=== PATIENT | male | born 1945 | race Caucasian/White ===

== ENCOUNTER 2020-03-07 15:52 | Inpatient (IN) | payer MEDICARE, BC ==
[~2020-03-07] VITALS: Ht 182.9 cm; Wt 113.0 kg
[~2020-03-07 15:52] MED LIST: DULO-31 PO; ERGO500014 PO; MIN5C PO; MULT-785 PO; POTA10TA19 PO; SIN10C PO
[2020-03-07] MEDS ORDERED: ondansetron/PF 4mg/2ml inj IV ONE (16:10)
[2020-03-07] MEDS ORDERED: morphine 4 MG/ML inj SYRINge IV ONE (16:10)
[2020-03-07] MEDS ORDERED: LORazepam 2 mg/ml vial IV ONE (16:10)
[2020-03-07 17:06] LABS: BASOPHILS # (AUTO) 0.1 X10'3 (0-0.2); BASOPHILS % (AUTO) 0.7 % (0-1); EOSINOPHILS # (AUTO) 0.3 X10'3 (0-0.9); EOSINOPHILS % (AUTO) 3.1 % (0-6); HEMATOCRIT 45.2 % (42.0-52.0); HEMOGLOBIN 15.1 g/dl (14.0-17.9); LYMPHOCYTES # (AUTO) 1.7 X10'3 (1.1-4.8); LYMPHOCYTES % (AUTO) 19.1 % (21-51); MEAN CORPUSCULAR HEMOGLOBIN 31.2 PG (27.0-31.0); MEAN CORPUSCULAR HGB CONC 33.3 g/dL (33.0-36.5); MEAN CORPUSCULAR VOLUME 93.5 FL (78-98); MONOCYTES # (AUTO) 0.6 X10'3 (0-0.9); MONOCYTES % (AUTO) 6.9 % (2-12); NEUTROPHILS # (AUTO) 6.2 X10'3 (1.8-7.7); NEUTROPHILS % (AUTO) 70.2 % (42-75); PLATELET COUNT 272 X10'3 (140-440); RED BLOOD COUNT 4.83 X10'6 (4.70-6.10); RED CELL DISTRIBUTION WIDTH 13.6 % (11.5-14.5); WHITE BLOOD COUNT 8.8 X10'3 (4.5-11.0)
[2020-03-07 17:20] LABS: ALANINE AMINOTRANSFERASE 50 U/L (12-78); ALBUMIN 3.6 G/DL (3.4-5.0); ALKALINE PHOSPHATASE 90 IU/L (46-116); ANION GAP 7 (8-16); ASPARTATE AMINO TRANSFERASE 27 U/L (10-37); BILIRUBIN,TOTAL 0.4 MG/DL (0.1-1.0); BLOOD UREA NITROGEN 21 MG/DL (7-18); BUN/CREATININE RATIO 15.8 (5.4-32.0); CALCIUM 8.7 MG/DL (8.5-10.1); CHLORIDE 106 MMOL/L (99-107); CREATININE 1.33 MG/DL (0.60-1.10); GLUCOSE 103 MG/DL (70-104); POTASSIUM 3.6 MMOL/L (3.5-5.1); SODIUM 140 MMOL/L (135-145); TOTAL CARBON DIOXIDE 26.6 MMOL/L (24-32); TOTAL PROTEIN 7.2 G/DL (6.4-8.2); eGFR 53 ML/MIN
[2020-03-07] MEDS ORDERED: ondansetron/PF 4mg/2ml inj IV PRN (17:50)
[2020-03-07] MEDS ORDERED: morphine 2 MG/ML inj. syringe IV PRN ×2 (17:50)
[2020-03-07] MEDS ORDERED: magnesium hydroxide 30ml (MOM) UD suspension PO PRN (17:50)
[2020-03-07] MEDS ORDERED: acetaminophen 325mg tablet PO PRN (17:50)
[2020-03-07] MEDS: dextrose 5%-1/2 normal saline 1,000 ML IV SCH (17:50)
--- NOTE | 2020-03-07 18:24 | NUR ---
Pt resting in bed, states relief from pain and anxiety
[2020-03-07] MEDS: docusate sod 100mg capsule PO SCH (20:00)
[2020-03-07 20:03] LABS: CLARITY,URINE CLEAR (Clear); COLOR,URINE YELLOW (Yellow); GLUCOSE, URINE NEGATIVE (Neg); KETONES,URINE NEGATIVE (Neg); LEUKOCYTE ESTERASE ,URINE NEGATIVE (Neg); NITRITES, URINE NEGATIVE (Neg); OCCULT BLOOD,URINE SMALL (Neg); PH,URINE 5.5 (4.8-8.0); PROTEIN,URINE NEGATIVE (Neg); UROBILINOGEN,URINE 0.2 E.U/dL (0.2-1.0)
[2020-03-07 20:09] LABS: BACTERIA,URINE NONE SEEN /HPF (Neg); SQUAMOUS EPITHELIAL CELL,UR FEW /LPF (FEW); UA COLLECTION TYPE STRAIGHT CATH; WBC,URINE NONE SEEN /HPF (0-4)
[2020-03-07 21:00] VITALS: BP 99/54
[2020-03-07] MEDS: HYDROcodone/acetaminophen 5mg/325mg tablet PO PRN (21:29)
[2020-03-07] MEDS: mag hydrox/Alum hydrox/simeth 30ml oral suspension PO PRN (21:29)
[2020-03-08] VITALS (19 sets, daily range): BP systolic 102–156; BP diastolic 38–77
[2020-03-08] MEDS ORDERED: OMEP20TA5 PO (04:23)
--- NOTE | 2020-03-08 06:26 | NUR ---
Problems reprioritized. Patient report given, questions answered & plan of care reviewed with ALECIA Wiley.
--- NOTE | 2020-03-08 06:40 | NUR ---
Patient in room ORTHO 4013. I have received report from Venecia ALSTON and had the opportunity to ask questions and assume patient care.
[2020-03-08 06:46] LABS: BASOPHILS % (AUTO) 0.2 % (0-1); EOSINOPHILS # (AUTO) 0.2 X10'3 (0-0.9); EOSINOPHILS % (AUTO) 1.7 % (0-6); HEMATOCRIT 42.3 % (42.0-52.0); HEMOGLOBIN 13.9 g/dl (14.0-17.9); LYMPHOCYTES # (AUTO) 1.1 X10'3 (1.1-4.8); LYMPHOCYTES % (AUTO) 11.2 % (21-51); MEAN CORPUSCULAR HEMOGLOBIN 30.8 PG (27.0-31.0); MEAN CORPUSCULAR VOLUME 93.5 FL (78-98); NEUTROPHILS # (AUTO) 7.3 X10'3 (1.8-7.7); NEUTROPHILS % (AUTO) 76.9 % (42-75); PLATELET COUNT 243 X10'3 (140-440); RED BLOOD COUNT 4.52 X10'6 (4.70-6.10); RED CELL DISTRIBUTION WIDTH 13.8 % (11.5-14.5); WHITE BLOOD COUNT 9.5 X10'3 (4.5-11.0)
[2020-03-08 07:08] LABS: ALBUMIN 3.1 G/DL (3.4-5.0); ANION GAP 6 (8-16); BLOOD UREA NITROGEN 19 MG/DL (7-18); BUN/CREATININE RATIO 16.4 (5.4-32.0); CHLORIDE 109 MMOL/L (99-107); CREATININE 1.16 MG/DL (0.60-1.10); GLUCOSE 116 MG/DL (70-104); POTASSIUM 3.3 MMOL/L (3.5-5.1); SODIUM 143 MMOL/L (135-145); TOTAL CARBON DIOXIDE 27.6 MMOL/L (24-32); eGFR 62 ML/MIN
[2020-03-08] MEDS ORDERED: magnesium 4gm in 100ml NS 100 ML IV PRN (07:20)
[2020-03-08] MEDS ORDERED: magnesium Cl slow-release 64mg tablet PO PRN (07:20)
[2020-03-08] MEDS ORDERED: potassium CL 10mEq/100ml bag 100 ML IV PRN (07:20)
[2020-03-08] MEDS ORDERED: potassium Cl 20 mEq SR tablet PO PRN (07:20)
[2020-03-08] MEDS: dextrose 5%-1/2 normal saline 1,000 ML IV SCH ×2 (07:43→13:50)
[2020-03-08] MEDS: docusate sod 100mg capsule PO SCH ×2 (08:00→20:00)
[2020-03-08] MEDS: K and/or MAG REPLACEMENT MC SCH ×2 (08:00→20:00)
[2020-03-08] MEDS ORDERED: ringers solution, lacted 1,000 ML IV ONE ×2 (08:10)
[2020-03-08] MEDS ORDERED: LEVO100T PO (09:03)
[2020-03-08] MEDS: duloxetine 30mg CAPSULE.DR PO SCH (09:47)
[2020-03-08] MEDS ORDERED: CHOL100024 PO (09:56)
[2020-03-08] MEDS ORDERED: vancomycin 1,000mg inj ONE (10:52)
--- NOTE | 2020-03-08 11:03 | NUR ---
Patient being transferred to OR, called report to Jori ALSTON in recovery.
[2020-03-08] MEDS ORDERED: fentaNYL/PF 50MCG/1 ML 2ML syringe ONE ×3 (11:29→12:06)
[2020-03-08] MEDS ORDERED: midazolam 2 mg/2 ml injection ONE (11:30)
[2020-03-08] MEDS ORDERED: sevoflurane 250ml liquid IH ONE (11:31)
[2020-03-08] MEDS ORDERED: propofol inj 20 ML IV ONE (11:31)
[2020-03-08] MEDS ORDERED: LIDOcaine 2% (20mg/ml) 5ml vial ONE (11:31)
[2020-03-08] MEDS ORDERED: dexamethasone sod phosphate 4mg/ml inj. ONE (11:31)
[2020-03-08] MEDS ORDERED: ondansetron/PF 4mg/2ml inj ONE (11:31)
[2020-03-08] MEDS ORDERED: TRANEXAMIC ACID 1 GM IN NACL,ISO-OS 100 ML IV ONE (12:05)
[2020-03-08] MEDS ORDERED: fentaNYL/PF 50MCG/1 ML 2ML syringe IV PRN ×2 (12:20)
[2020-03-08] MEDS ORDERED: morphine 4 MG/ML inj SYRINge IV PRN (12:20)
[2020-03-08] MEDS ORDERED: morphine 2 MG/ML inj. syringe IV PRN (12:20)
[2020-03-08] MEDS ORDERED: ondansetron/PF 4mg/2ml inj IV PRN (12:20)
[2020-03-08] MEDS ORDERED: hydrALAZINE 20mg/ml inj. IV PRN (12:20)
[2020-03-08] MEDS ORDERED: labetalol 20mg/4ml (5mg/ml) syringe IV PRN (12:20)
[2020-03-08] MEDS ORDERED: ringers solution, lacted 1,000 ML IV SCH (12:20)
--- NOTE | 2020-03-08 12:55 | NUR ---
Received from OR via BED , accompanied by Anesthesiologist DR JORGENSEN and report given by Anesthesiolgist. PATIENT WAKING UP, DENIES PAIN, V/S WNL, NEUROVASCULAR CHECKS INTACT, 20G PIV RUE , DRESSING TO RIGHT HIP CDI W/ COLD POWDER PACK AND BRACE LOCKED IN EXTENTION TO RLE. F/C DRAINING CLEAR YELLOW URINE.
--- NOTE | 2020-03-08 13:06 | NUR ---
RECEIVED REPORT FROM JON QUINTANA RN. PT EXPECTED TO 4013B SOON.
--- NOTE | 2020-03-08 13:55 | NUR ---
PATIENT A&OX4, DENIES PAIN, V/S WNL, NEUROVASCULAR CHECKS INTACT, 20G PIV RUE , DRESSING TO RIGHT HIP CDI W/ COLD POWDER PACK AND BRACE LOCKED IN EXTENTION TO RLE. F/C DRAINING CLEAR YELLOW URINE. PATIENT TAKEN TO 0953B WITH ALL BELONGINGS AND REPORT GIVEN TO TELEPHONE SERVICE ADVISER WHO HAS TAKEN OVER PATIENT CARE.
[2020-03-08] MEDS: HYDROcodone/acetaminophen 10/325mg tab PO PRN (15:09)
[2020-03-08] MEDS: potassium Cl 20 mEq SR tablet PO PRN ×2 (15:09→20:12)
[2020-03-08] MEDS: ceFAZolin 2gm in dextrose, iso 50 ML IV SCH (15:21)
--- NOTE | 2020-03-08 18:30 | NUR ---
Problems reprioritized. Patient report given, questions answered & plan of care reviewed with Venecia ALSTON.
[2020-03-08] MEDS: mag hydrox/Alum hydrox/simeth 30ml oral suspension PO PRN (19:03)
[2020-03-08] MEDS: enoxaparin 40mg/0.4ml syringe SUBCUT SCH (20:09)
[2020-03-08] MEDS: prazosin 5mg capsule PO SCH (20:11)
[2020-03-08] MEDS: doxepin 10mg capsule PO SCH (20:12)
[2020-03-08] MEDS: HYDROcodone/acetaminophen 5mg/325mg tablet PO PRN (20:12)
[2020-03-09] MEDS: dextrose 5%-1/2 normal saline 1,000 ML IV SCH (01:17)
[2020-03-09] MEDS: ceFAZolin 2gm in dextrose, iso 50 ML IV SCH (01:18)
[2020-03-09 02:00] VITALS: BP 110/50
[2020-03-09] MEDS: HYDROcodone/acetaminophen 10/325mg tab PO PRN ×2 (05:35→15:29)
[2020-03-09 06:00] VITALS: BP 136/61
[2020-03-09 06:27] LABS: BASOPHILS % (AUTO) 0.1 % (0-1); EOSINOPHILS % (AUTO) 0 % (0-6); HEMATOCRIT 39.9 % (42.0-52.0); HEMOGLOBIN 13.5 g/dl (14.0-17.9); LYMPHOCYTES # (AUTO) 1.1 X10'3 (1.1-4.8); LYMPHOCYTES % (AUTO) 10.2 % (21-51); MEAN CORPUSCULAR HEMOGLOBIN 31.8 PG (27.0-31.0); MEAN CORPUSCULAR HGB CONC 33.9 g/dL (33.0-36.5); MEAN CORPUSCULAR VOLUME 93.7 FL (78-98); MEAN PLATELET VOLUME 6.9 FL (7.4-10.4); MONOCYTES % (AUTO) 9.1 % (2-12); NEUTROPHILS # (AUTO) 8.5 X10'3 (1.8-7.7); NEUTROPHILS % (AUTO) 80.6 % (42-75); PLATELET COUNT 228 X10'3 (140-440); RED BLOOD COUNT 4.26 X10'6 (4.70-6.10); RED CELL DISTRIBUTION WIDTH 13.8 % (11.5-14.5); WHITE BLOOD COUNT 10.6 X10'3 (4.5-11.0)
--- NOTE | 2020-03-09 06:36 | NUR ---
Problems reprioritized. Patient report given, questions answered & plan of care reviewed with ALECIA Wiley.
[2020-03-09 06:45] LABS: ALBUMIN 2.9 G/DL (3.4-5.0); ANION GAP 4 (8-16); BLOOD UREA NITROGEN 12 MG/DL (7-18); BUN/CREATININE RATIO 10.7 (5.4-32.0); CALCIUM 8.5 MG/DL (8.5-10.1); CHLORIDE 108 MMOL/L (99-107); CREATININE 1.12 MG/DL (0.60-1.10); GLUCOSE 133 MG/DL (70-104); POTASSIUM 3.9 MMOL/L (3.5-5.1); SODIUM 143 MMOL/L (135-145); TOTAL CARBON DIOXIDE 31.1 MMOL/L (24-32); eGFR 64 ML/MIN
[2020-03-09] MEDS: duloxetine 30mg CAPSULE.DR PO SCH (07:37)
[2020-03-09] MEDS: levoTHYROXINE 100mcg tablet PO SCH (07:37)
[2020-03-09] MEDS: pantoprazole 40mg Tablet.DR PO SCH (07:38)
[2020-03-09] MEDS: vitamin D (cholecalciferol) 1,000 unit tablet PO SCH (07:38)
[2020-03-09] MEDS: docusate sod 100mg capsule PO SCH ×2 (07:38→20:00)
[2020-03-09] MEDS: multivitamins, therapeutics tablet PO SCH (07:38)
[2020-03-09] MEDS: K and/or MAG REPLACEMENT MC SCH ×2 (08:00→20:00)
[2020-03-09] MEDS ORDERED: ergocalciferol (vit D) capsule 1,250 MCG (50,000 UNITS) CAPSULE PO SCH (08:00)
[2020-03-09 10:00] VITALS: BP 107/47
[2020-03-09 14:00] VITALS: BP 107/42
[2020-03-09 18:00] VITALS: BP 109/41
--- NOTE | 2020-03-09 18:16 | NUR ---
Problems reprioritized. Patient report given, questions answered & plan of care reviewed with Radha ALSTON.
--- NOTE | 2020-03-09 18:17 | NUR ---
Patient in room ORTHO 4013. I have received report from Inez ALSTON and had the opportunity to ask questions and assume patient care.
[2020-03-09] MEDS ORDERED: LORazepam 2 mg/ml vial IV PRN (19:50)
[2020-03-09] MEDS: doxepin 10mg capsule PO SCH (20:15)
[2020-03-09] MEDS: prazosin 5mg capsule PO SCH (20:15)
[2020-03-09] MEDS: mag hydrox/Alum hydrox/simeth 30ml oral suspension PO PRN (20:16)
[2020-03-09] MEDS: enoxaparin 40mg/0.4ml syringe SUBCUT SCH (20:17)
[2020-03-09 22:00] VITALS: BP 106/58
[2020-03-10] MEDS: HYDROcodone/acetaminophen 10/325mg tab PO PRN (04:46)
[2020-03-10 06:00] VITALS: BP 121/61
--- NOTE | 2020-03-10 06:33 | NUR ---
Problems reprioritized. Patient report given, questions answered & plan of care reviewed with Delia ALSTON.
[2020-03-10 07:46] LABS: BASOPHILS # (AUTO) 0.1 X10'3 (0-0.2); BASOPHILS % (AUTO) 1.2 % (0-1); EOSINOPHILS # (AUTO) 0.4 X10'3 (0-0.9); EOSINOPHILS % (AUTO) 4.2 % (0-6); HEMATOCRIT 38.1 % (42.0-52.0); HEMOGLOBIN 12.9 g/dl (14.0-17.9); LYMPHOCYTES # (AUTO) 1.1 X10'3 (1.1-4.8); LYMPHOCYTES % (AUTO) 11.5 % (21-51); MEAN CORPUSCULAR HEMOGLOBIN 31.6 PG (27.0-31.0); MEAN CORPUSCULAR HGB CONC 33.8 g/dL (33.0-36.5); MEAN CORPUSCULAR VOLUME 93.3 FL (78-98); MEAN PLATELET VOLUME 7.4 FL (7.4-10.4); MONOCYTES # (AUTO) 0.9 X10'3 (0-0.9); MONOCYTES % (AUTO) 9.6 % (2-12); NEUTROPHILS % (AUTO) 73.5 % (42-75); PLATELET COUNT 202 X10'3 (140-440); RED BLOOD COUNT 4.08 X10'6 (4.70-6.10); RED CELL DISTRIBUTION WIDTH 13.7 % (11.5-14.5); WHITE BLOOD COUNT 9.6 X10'3 (4.5-11.0)
[2020-03-10 07:58] LABS: ANION GAP 6 (8-16); BLOOD UREA NITROGEN 15 MG/DL (7-18); BUN/CREATININE RATIO 13.5 (5.4-32.0); CALCIUM 8.2 MG/DL (8.5-10.1); CHLORIDE 103 MMOL/L (99-107); CREATININE 1.11 MG/DL (0.60-1.10); GLUCOSE 95 MG/DL (70-104); POTASSIUM 3.2 MMOL/L (3.5-5.1); SODIUM 141 MMOL/L (135-145); TOTAL CARBON DIOXIDE 31.9 MMOL/L (24-32); eGFR 65 ML/MIN
[2020-03-10 07:59] LABS: ALBUMIN 2.8 G/DL (3.4-5.0)
[2020-03-10] MEDS: docusate sod 100mg capsule PO SCH (08:00)
[2020-03-10] MEDS: K and/or MAG REPLACEMENT MC SCH (08:00)
[2020-03-10] MEDS: levoTHYROXINE 100mcg tablet PO SCH (08:21)
[2020-03-10] MEDS: duloxetine 30mg CAPSULE.DR PO SCH (08:21)
[2020-03-10] MEDS: pantoprazole 40mg Tablet.DR PO SCH (08:21)
[2020-03-10] MEDS: multivitamins, therapeutics tablet PO SCH (08:21)
[2020-03-10] MEDS: vitamin D (cholecalciferol) 1,000 unit tablet PO SCH (08:22)
[2020-03-10 10:00] VITALS: BP 107/62
[2020-03-10] MEDS ORDERED: ENOX40DI11 SUBCUT (10:42)
[2020-03-10] MEDS ORDERED: DOCU100C40 PO (10:42)
[2020-03-10] MEDS ORDERED: HYDR-4383 PO (10:42)
== END 2020-03-10 13:15 | disposition home or self-care (01) | DRG 522 ==
LOC: ER 15:53 → ED HOLD 17:49 → ORTHO 4S 20:50
PROVIDERS: ADMIT Internal Medicine; ATTEND Internal Medicine
PROC: 0SRR0JA Replacement of Right Hip Joint, Femoral Surface with Synthetic Substitute, Uncemented, Open Approach (ICD-10-PCS; principal; 2020-03-08 11:31)
DX: S72.001A Fracture of unspecified part of neck of right femur, initial encounter for closed fracture (principal); E03.9 Hypothyroidism, unspecified; E78.5 Hyperlipidemia, unspecified; F32.9 Major depressive disorder, single episode, unspecified; W01.0XXA Fall on same level from slipping, tripping and stumbling without subsequent striking against object, initial encounter; K21.9 Gastro-esophageal reflux disease without esophagitis; Y93.02 Activity, running; Z20.828 Contact with and (suspected) exposure to other viral communicable diseases; F03.90 Unspecified dementia, unspecified severity, without behavioral disturbance, psychotic disturbance, mood disturbance, and anxiety; F43.10 Post-traumatic stress disorder, unspecified; I10 Essential (primary) hypertension; N40.0 Benign prostatic hyperplasia without lower urinary tract symptoms; Z79.899 Other long term (current) drug therapy; Z83.3 Family history of diabetes mellitus; Y99.8 Other external cause status; Y92.098 Other place in other non-institutional residence as the place of occurrence of the external cause; Z90.49 Acquired absence of other specified parts of digestive tract
CPT/HCPCS: 36415; 71045; 73502; 80048; 80053; 81001; 83880; 85025; 85610; 86885; 86900; 86901; 87081; 87635; 93005; 96374; 96375; 97110; 97116; 97161; 97530; 99285; A4618; A6454; A7000; C1776; G0378; J1100; J1650; J2001; J2060; J2250; J2270; J2405; J2704; J3010; J3370; J3480; J7120